=== PATIENT | male | born 1995 | race Caucasian/White ===

== ENCOUNTER 2018-11-16 13:24 | Emergency (ER) | payer OTHER ==
[2018-11-16] MEDS ORDERED: LoraTADine TAB(NF) 10 MG TAB (AUTOSUB to CETIRIZINE) PO ONE (13:46)
--- NOTE | 2018-11-16 13:50 | ED ---
Allergic Reaction/Systemic - HPI Summary HPI Summary: A 23 y/o M presents to ED s/p possible allergic reaction onset approx 1245. Pt says he ate a hamburger, fries and Caes[employer] salad and noticed tingling to his lips and tongue. He describes it as though his lips and tongue feel dry and the skin might crack. Associated sx: Mild swelling to lips and tongue. Denies nausea , rash, SOB, dyspnea. No similar past episodes. Non-smoker. - History of Current Complaint Chief Complaint: EDAllergicReaction Time Seen by Provider: 11/16/18 13:42 Hx Obtained From: Patient Onset/Duration: Sudden Onset, Started hours ago, Still Present Timing: Constant Severity Initially: Mild Severity Currently: Mild Pain Intensity: 2 Pain Scale Used: 0-10 Numeric Location: Discrete @ - lips, tongue Character: Swelling Associated Signs And Symptoms: Positive: Other: - pos: tingling to lips/tongue, mild swelling to lips/tongue. Negative: Difficulty Breathing, Nausea, Rash - Allergies/Home Medications Allergies/Adverse Reactions: Allergies Allergy/AdvReac Type Severity Reaction Status Date / Time No Known Allergies Allergy Verified 11/16/18 13:32 PMH/Surg Hx/FS Hx/Imm Hx Previously Healthy: Yes Sensory History: Reports: Hx Contacts or Glasses Opthamlomology History: Reports: Hx Contacts or Glasses Neurological History: Denies: Hx Dementia Infectious Disease History: No Infectious Disease History: Denies: Traveled Outside the [place] in Last 30 Days - Social History Occupation: Employed Part-time, Student Lives: With Family Hx Tobacco Use: No Review of Systems ENT: Other - pos: lip and tongue tingling and swelling Respiratory: Negative Negative: Nausea Negative: Rash All Other Systems Reviewed And Are Negative: Yes Physical Exam - Summary Physical Exam Summary: Appearance: Well-appearing, Well-nourished, lying in bed comfortably Skin: Warm, dry, no obvious rash Eyes: sclera anicteric, no conjunctival pallor ENT: mucous membranes moist, pharynx appears normal; mild swelling of lips and irritation to tip of tongue Neck: Supple, nontender Respiratory: Clear to auscultation, no signs of respiratory distress Cardiovascular: Normal S1, S2. No murmurs. Normal distal pulses in tibial and radial bilaterally. Abdomen: Soft, nontender, normal active bowel sounds present Musculoskeletal: Normal, Strength/ROM Intact Neurological: A&Ox3, awake and alert, mentation is normal, speech is fluent and appropriate Psychiatric: affect is normal, does not appear anxious or depressed Triage Information Reviewed: Yes Vital Signs On Initial Exam: Initial Vitals Temp Pulse Resp BP Pulse Ox 98.2 F 87 16 153/81 98 11/16/18 13:26 11/16/18 13:26 11/16/18 13:26 11/16/18 13:26 11/16/18 13:26 Vital Signs Reviewed: Yes Diagnostics - Vital Signs Vital Signs Temp Pulse Resp BP Pulse Ox 11/16/18 13:26 98.2 F 87 16 153/81 98 - Laboratory Lab Statement: Any lab studies that have been ordered have been reviewed, and results considered in the medical decision making process. Allergic Reaction Course/Dx - Course Course Of Treatment: Pt is a 23 y/o M presenting for possible allergic reaction onset approx 1245. After eating hamburger, fries and Caeser salad, he noticed tingling and mild swelling to his lips and tongue. Denies nausea, rash, SOB, dyspnea. Pt given Zyrtec in ED. Will discharge patient home. - Diagnoses Provider Diagnoses: Food allergy Discharge - Sign-Out/Discharge Documenting (check all that apply): Patient Departure - DC Patient Received Moderate/Deep Sedation with Procedure: No - Discharge Plan Condition: Stable Disposition: HOME Patient Education Materials: Food Allergy (ED) Referrals: [facility] [Outside] - If Needed Additional Instructions: Symptoms should resolve over the next 24-48 hours and are unlikely to worsen from here. If they do and antihistamines don't seem to be helping, you should come back here. - Billing Disposition and Condition Condition: STABLE Disposition: Home - Attestation Statements Document Initiated by Scribe: Yes Documenting Scribe: Elijah Poe Provider For Whom Scribe is Documenting (Include Credential): Dr. Jose Enrique Arenas MD Scribe Attestation: Elijah Baumann scribed for Dr. Jose Enrique Arenas MD on 11/16/18 at 1914. Scribe Documentation Reviewed: Yes Provider Attestation: The documentation as recorded by the Elijah garcia accurately reflects the service I personally performed and the decisions made by me, Dr. Jose Enrique Arenas MD Status of Scribe Document: Viewed
[2018-11-16 14:56] VITALS: BP 128/70
[2018-11-16] MEDS ORDERED: Cetirizine* 10 MG TAB PO ONE (15:00)
== END 2018-11-16 14:59 | disposition home or self-care (01) ==
LOC: ED 13:24
DX: T78.1XXA Other adverse food reactions, not elsewhere classified, initial encounter (principal); X58.XXXA Exposure to other specified factors, initial encounter; Y92.9 Unspecified place or not applicable
CPT/HCPCS: 99282; A9270-GY